=== PATIENT | female | born 1960 | race Caucasian/White ===

== ENCOUNTER 2019-12-14 05:11 | Day surgery (SDC) | payer OTHER ==
[2019-12-14] MEDS ORDERED: SODIUM CHLORIDE 0.9% 1000ML 1,000 ML ONE (06:36)
[2019-12-14] MEDS ORDERED: PROPOFOL 200 MG/20 ML VIAL IV ONE (07:00)
[2019-12-14] MEDS ORDERED: LIDOCAINE 1% 10 ML VIAL INJ ONE (07:00)
[2019-12-14 08:21] VITALS: O2SAT 95
--- NOTE | 2019-12-14 08:24 | OP ---
DATE OF PROCEDURE: 12/14/19 PREOPERATIVE DIAGNOSIS: 1. Colorectal cancer screening, average risk. POSTOPERATIVE DIAGNOSIS: 1. Unremarkable colonoscopy. PROCEDURE: 1. Colonoscopy. SURGEON: August Antonio MD ANESTHESIA: Monitored anesthesia care. ESTIMATED BLOOD LOSS: Less than 5 mL. COMPLICATIONS: None. PROCEDURE: The patient was placed in the left lateral decubitus position. A time-out was performed. After deep sedation was achieved, the Olympus adult colonoscope was inserted through the anus, into the rectum and advanced to the cecum under direct visualization without difficulty. The cecum was identified by the ileocecal valve and the appendiceal orifice. Photodocumentation of these locations was performed. The patients bowel preparation was good. The endoscope was then progressively withdrawn and the total colonic lumen evaluated. Retroflexion was performed in the rectum. The endoscope was then withdrawn and the procedure terminated. The patient tolerated the procedure well with no immediate complications. FINDINGS: 1. A retained Villar pH capsule found in the cecum. This was not removed or sampled. 2. The remainder of the colonoscopy exam was otherwise unremarkable. No polyps or masses were seen. IMPRESSION: 1. Unremarkable colonoscopy. 2. Retained ambulatory pH capsule in the cecum. RECOMMENDATIONS: 1. Okay to discharge home once the patient meets discharge criteria. 2. Resume prior diet. 3. Resume home medications. 4. Repeat colonoscopy in 10 years. 5. Followup in the GI clinic with Dr. Antonio in 3 months. #[id number] MTDD
[2019-12-14 10:16] VITALS: BP 157/84; TEMP 96.9
== END 2019-12-14 09:05 | disposition home or self-care (01) ==
LOC: AMB 05:11
PROVIDERS: ATTEND Internal Medicine Gastroenterology
DX: Z12.11 Encounter for screening for malignant neoplasm of colon (principal); I10 Essential (primary) hypertension; I25.10 Atherosclerotic heart disease of native coronary artery without angina pectoris; E11.9 Type 2 diabetes mellitus without complications; E66.9 Obesity, unspecified; Z88.0 Allergy status to penicillin; Z88.8 Allergy status to other drugs, medicaments and biological substances; Z68.41 Body mass index [BMI] 40.0-44.9, adult; Z90.710 Acquired absence of both cervix and uterus; Z79.02 Long term (current) use of antithrombotics/antiplatelets; Z79.4 Long term (current) use of insulin; Z79.899 Other long term (current) drug therapy
CPT/HCPCS: 00812; 45378; J3490; J7030